=== PATIENT | female | born 1960 | race Caucasian/White ===

== ENCOUNTER → 2018-04-22 12:04 | Emergency (ER) | payer BC ==
[~2018-04-22 12:04] MED LIST: Dexamethasone TAB* 4 MG PO ONE; NS 0.9% 1000 ML** 1,000 ML IV ONE; diPHENhydraMINE PO* 50 MG PO ONE; predniSONE TAB* 20 MG PO ONE
--- NOTE | 2018-04-22 13:40 | ED ---
Syncope/Near Syncope - HPI Summary HPI Summary: Pt is a 57 y/o female who presents to the ED c/o syncope. Pt was diagnosed with diverticulitis [address], and was placed on Ciprofloxacin and Flagyl by her oncologist. She was then switched from Ciprofloxacin to Bactrim 3 days ago by her PCP. Since switching to Bactrim, she has had several episodes of racing palpitations and nausea. Yesterday she became dizzy after standing up and had a near-syncopal episode. Pt believes her sx are caused by the Bactrim, so she did not take her dose this morning. She had a CT yesterday that revealed that the left-sided diverticulitis is improving with antibiotics. She denies any current sx or abdominal pain. Pt has an extensive hx of diverticulitis recurring in the same spot approximately 10 times. She denies any hx of Crohns or colitis. Pt has a colonoscopy scheduled for 05/06/18. PMHx breast CA in remission. - History Of Current Complaint Chief Complaint: EDDysrhythmPalp Time Seen by Provider: 04/22/18 13:34 Hx Obtained From: Patient, Family/[employer] - Onset/Duration: Gradual Onset, Lasting Days - 3, Still Present Timing: Intermittent Episode Lasting Context: Loss Of Consciousness Activity At Onset: Other - standing up after sitting down Associated Head Trauma: No Aggravating Factor(s): Position Change - standing up, Other - possibly Bactrim Alleviating Factor(s): Nothing Associated Signs And Symptoms: Dizzy - Allergies/Home Medications Allergies/Adverse Reactions: Allergies Allergy/AdvReac Type Severity Reaction Status Date / Time MS Cephalexin [From Keflex] Allergy Rash Verified 09/22/17 11:37 PMH/Surg Hx/FS Hx/Imm Hx Cardiovascular History: Denies: Hx Hypertension GI History: Reports: Hx Diverticulosis - Diverticulitis x10 Denies: Hx Crohn's Disease, Other GI Disorders - Colitis - Surgical History Surgery Procedure, Year, and Place: kidney stone Infectious Disease History: No Infectious Disease History: Denies: Traveled Outside the [place] in Last 30 Days - Family History Known Family History: Positive: Hypertension, Other - Diverticulitis - Social History Alcohol Use: None Hx Substance Use: No Substance Use Type: Reports: None Hx Tobacco Use: Yes Smoking Status (MU): Former Smoker Type: Cigarettes Amount Used/How Often: 1/2 pack daily Review of Systems Positive: Palpitations Positive: Nausea. Negative: Abdominal Pain Neurological: Other - Dizziness Positive: Syncope - Near All Other Systems Reviewed And Are Negative: Yes Physical Exam - Summary Physical Exam Summary: Appearance: Well appearing, no pain distress Skin: warm, dry, reflects adequate perfusion Head/face: normal Eyes: EOMI, JANAY ENT: mucous membranes moist Neck: supple, non-tender Respiratory: CTA, breath sounds present Cardiovascular: RRR, pulses symmetrical Abdomen: non-tender, soft Bowel Sounds: present Musculoskeletal: normal, strength/ROM intact Neuro: normal, sensory motor intact, A&Ox3 Triage Information Reviewed: Yes Vital Signs On Initial Exam: Initial Vitals Temp Pulse Resp BP Pulse Ox 97.3 F 99 18 144/95 100 04/22/18 12:06 04/22/18 12:06 04/22/18 12:06 04/22/18 12:06 04/22/18 12:06 Vital Signs Reviewed: Yes Diagnostics - Vital Signs Vital Signs Temp Pulse Resp BP Pulse Ox 04/22/18 12:06 97.3 F 99 18 144/95 100 - Laboratory Result Diagrams: 04/22/18 13:49 04/22/18 13:49 Lab Statement: Any lab studies that have been ordered have been reviewed, and results considered in the medical decision making process. - EKG 12:10 Cardiac Rate: NL - 93 bpm EKG Rhythm: Sinus Rhythm ST Segment: Non-Specific Summary of EKG Findings: Nl axis, nl intervals Re-Evaluation - Re-Evaluation First Eval Re-Evaluation Time: 14:30 Change: Worse Comment: Pt broke out in hives. Course/Dx Course Of Treatment: Nurse's notes reviewed. Patient with recent diverticulitis treated with antibiotics then converted to Bactrim. She had palpitations and near syncopal event and developed rash here that looks like allergy. Discontinue Bactrim, treat with steroids, Benadryl and IV fluids here. Laboratories otherwise normal. No abdominal pain. - Diagnoses Differential Diagnosis/HQI/PQRI: Positive: Metabolic Reaction, Vasovagal Episode Provider Diagnoses: Near syncope, Adverse effects of medication, Palpitations, Allergy to sulfa drugs Discharge - Sign-Out/Discharge Documenting (check all that apply): Patient Departure - Discharge Patient Received Moderate/Deep Sedation with Procedure: No - Discharge Plan Condition: Improved Disposition: HOME Patient Education Materials: Near Syncope (ED) Referrals: Dmitry Miles MD [Medical Doctor] - Gold Staley MD [Primary Care Provider] - Additional Instructions: Drink plenty of fluids. Visit surgeon to discuss your recurrent bouts of diverticulitis. Discontinue Bactrim. Return if worse, fever, new symptoms or other concerns. Follow-up with your primary care physician within the next several days. - Billing Disposition and Condition Condition: IMPROVED Disposition: Home - Attestation Statements Document Initiated by Alva: Yes Documenting Scribe: Kerry Tapia Provider For Whom Scribe is Documenting (Include Credential): Clemente Antonio MD Scribe Attestation: Kerry Reyes scribed for Clemente Antonio MD on 04/22/18 at 1716. Scribe Documentation Reviewed: Yes Provider Attestation: The documentation as recorded by the Kerry espinoza accurately reflects the service I personally performed and the decisions made by Clemente espinosa MD Status of Scribe Document: Viewed
[2018-04-22 13:56] LABS: ABS Basophils 0 10^3/ul (0-0.2); ABS Eosinophils 0.1 10^3/ul (0-0.6); ABS Lymphocytes 1.1 10^3/ul (1.0-4.8); ABS Monocytes 0.6 10^3/ul (0-0.8); ABS Neutrophils 2.7 10^3/ul (1.5-7.7); ABS Nucleated RBC 0 10^3/ul; Eosinophil % 1.5 %; Hematocrit 37 % (35-47); Hemoglobin 12.4 g/dl (12.0-16.0); Lymphocyte % 24.9 %; Mean Corpuscular HGB Conc 33 g/dl (31-36); Mean Corpuscular Hemoglobin 30 pg (27-31); Mean Corpuscular Volume 92 fL (80-97); Mean Platelet Volume 6.6 fL (7.4-10.4); Nucleated Red Blood Cells % 0.1; Platelet Count 242 10^3/ul (150-450); Red Blood Count 4.07 10^6/ul (4.00-5.40); Red Cell Distribution Width 15 % (10.5-15); White Blood Count 4.5 10^3/ul (3.5-10.8)
[2018-04-22 14:15] LABS: Albumin 4.4 g/dL (3.2-5.2); Albumin/Globulin Ratio 1.2 (1-3); BUN/Creatinine Ratio 9.1 (8-20); C Reactive Protein 2.91 mg/L (<8.01); Calcium 10.2 mg/dL (8.6-10.3); EGFR African American 79.9 (>60); Globulin 3.7 g/dL (2-4); Total Bilirubin 0.4 mg/dL (0.2-1.0); Total Protein 8.1 g/dL (6.4-8.9)
[2018-04-22 15:45] VITALS: BP 135/78
== END | disposition home or self-care (01) ==
LOC: ED 12:04
DX: R55 Syncope and collapse (principal); R00.2 Palpitations; T37.0X5A Adverse effect of sulfonamides, initial encounter; Y92.9 Unspecified place or not applicable; Z88.1 Allergy status to other antibiotic agents; Z88.2 Allergy status to sulfonamides; Z87.891 Personal history of nicotine dependence
CPT/HCPCS: 36415; 80053; 84484; 85025; 86140; 93005; 96360; 99282; A9270-GY; J8540